=== PATIENT | male | born 1995 | race Caucasian/White ===

== ENCOUNTER 2024-05-17 16:14 | Emergency (ER) | payer BC | END 2024-05-17 17:17 | disposition home or self-care (01) | LOC: NAV ERS 16:14 | DX: S60.221A Contusion of right hand, initial encounter (principal); F17.210 Nicotine dependence, cigarettes, uncomplicated; W22.8XXA Striking against or struck by other objects, initial encounter; Y99.0 Civilian activity done for income or pay | CPT/HCPCS: 99283 ==

== ENCOUNTER 2024-08-27 09:35 | Outpatient (CLI) | payer BC | END 2024-08-27 09:36 | disposition home or self-care (01) | LOC: NAV RAD 09:35 | PROVIDERS: ATTEND Family Medicine | DX: M54.42 Lumbago with sciatica, left side (principal) | CPT/HCPCS: 72100 ==

== ENCOUNTER 2024-10-09 12:36 | Outpatient (CLI) | payer BC | END 2024-10-09 12:37 | disposition home or self-care (01) | LOC: NAV RAD 12:36 | PROVIDERS: ATTEND Family Medicine | DX: M25.552 Pain in left hip (principal); M16.12 Unilateral primary osteoarthritis, left hip | CPT/HCPCS: 72170 ==